=== PATIENT | female | born 1960 | race Asian ===

== ENCOUNTER 2022-08-22 15:04 | Emergency (ER) | payer OTHER ==
[~2022-08-22] VITALS: Ht 154.9 cm; Wt 63.6 kg
[2022-08-22] MEDS ORDERED: MORPHINE SULFATE 2 MG/ML SYRINGE IVP ONE (17:00)
[2022-08-22 19:11] VITALS: BP 141/90; PULSE 78; RESP 17; TEMP 98.2
== END 2022-08-22 20:02 | disposition home or self-care (01) ==
LOC: EMS 15:26
DX: S42.022A Displaced fracture of shaft of left clavicle, initial encounter for closed fracture (principal); Z98.890 Other specified postprocedural states; W19.XXXA Unspecified fall, initial encounter; Y93.89 Activity, other specified; Y92.89 Other specified places as the place of occurrence of the external cause; Y99.8 Other external cause status
CPT/HCPCS: 99284; 96374; 73000; 73030; J2270